=== PATIENT | female | born 1950 | race African-American/Black ===

== ENCOUNTER → 2016-03-31 | Outpatient (CLI) | payer MEDICARE, BC ==
[~2016-03-31] MED LIST: 1-ME1LIQ PO; ACYC800T PO; AMLO10TA2 PO; BYST10TA2 PO; CARB1DRO EACH EYE; CEPH-460 PO; DIAZ5 PO; DIAZ5TAB PO; FEXO15TA PO; GABA100C4 PO; GABA300 PO; HYDR-3288 PO; HYZA100T6 PO; IRON18TA PO; LEVO.1 PO; LEVO100T5 PO; LOSA100T PO; MONT10TA2 PO; MULT1TAB PO; POTA-163 PO; POTA20IN3 PO; PROT40TA PO; REST0.05 OU; SYNT88TA; SYNT88TA PO; TIZA4TAB PO; VITA10002 PO; VITA100064 PO; ZANA4CAP PO
[2016-03-31 08:05] LABS: AUTOMATED NEUTROPHIL # 2.7 TH/MM3 (1.8-7.7); BASOPHIL # 0.1 TH/MM3 (0-0.2); BASOPHIL % 1.3 % (0.0-2.0); HEMATOCRIT 36.1 % (35.0-46.0); LYMPH % 26.6 % (9.0-44.0); LYMPHOCYTE # 1.1 TH/MM3 (1.0-4.8); MEAN CELL VOLUME 67.1 FL (80.0-100.0); MEAN CORPUSCULAR HEMOGLOBIN 20.9 PG (27.0-34.0); MEAN CORPUSCULAR HGB CONC 31.2 % (32.0-36.0); MONO % 6.7 % (0.0-8.0); NEUT % 64.4 % (16.0-70.0); PLATELET COUNT 331 TH/MM3 (150-450); RED BLOOD COUNT 5.38 MIL/MM3 (4.00-5.30); RED CELL DISTRIBUTION WIDTH 15.2 % (11.6-17.2); WHITE BLOOD COUNT 4.2 TH/MM3 (4.0-11.0)
[2016-03-31 08:09] LABS: HEMO FLAGS AUTO DIFF
[2016-03-31 08:47] LABS: ALKALINE PHOSPHATASE 113 U/L (45-117); ALT (GPT) 28 U/L (10-53); ANION GAP 10 MEQ/L (5-15); AST (GOT) 36 U/L (15-37); BLOOD UREA NITROGEN 12 MG/DL (7-18); CHLORIDE 92 MEQ/L (98-107); FREE T4 1.04 NG/DL (0.76-1.46); GLOMERULAR FILTRATION RATE 80 ML/MIN (>89); GLUCOSE,FASTING 114 MG/DL (74-99); HDL CHOLESTEROL 75.5 MG/DL (40.0-60.0); LDL CHOLESTEROL 147 MG/DL (0-99); POTASSIUM 3.8 MEQ/L (3.5-5.1); SODIUM (NA) 131 MEQ/L (136-145); TOTAL BILIRUBIN ADULT 0.6 MG/DL (0.2-1.0)
[2016-03-31 08:57] LABS: PLATELET ESTIMATE SMEAR NORMAL (NORMAL); PLATELET MORPHOLOGY NORMAL (NORMAL); SCAN/DIFF AUTO DIFF CONFIRMED
== END ==
LOC: CLAB 07:37
DX: E89.0 Postprocedural hypothyroidism (principal); I10 Essential (primary) hypertension; E03.9 Hypothyroidism, unspecified; E55.9 Vitamin D deficiency, unspecified
CPT/HCPCS: 36415; 80053; 80061; 82306; 84439; 84443; 85025

== ENCOUNTER → 2016-04-21 | Outpatient (CLI) | payer MEDICARE, BC ==
[2016-04-21 15:59] LABS: HEMOGLOBIN A1a 1.6 %; HEMOGLOBIN A1b 1.9 %; HEMOGLOBIN Ao 85.9 %; HEMOGLOBIN LA1C 1.8 %
== END ==
LOC: CLAB 07:39
PROVIDERS: ATTEND Family Medicine
DX: R73.09 Other abnormal glucose (principal)
CPT/HCPCS: 36415; 83036

== ENCOUNTER → 2016-08-04 | Outpatient (CLI) | payer MEDICARE, BC ==
[~2016-08-04] MED LIST changes: -1-ME1LIQ PO; -CARB1DRO EACH EYE; -DIAZ5TAB PO; -GABA300 PO; -HYZA100T6 PO; -MULT1TAB PO; -POTA20IN3 PO; -REST0.05 OU; -SYNT88TA PO; -ZANA4CAP PO
[2016-08-04 08:41] LABS: FREE T4 0.87 NG/DL (0.76-1.46)
== END ==
LOC: CLAB 07:30
DX: E89.0 Postprocedural hypothyroidism (principal)
CPT/HCPCS: 36415; 84439; 84443

== ENCOUNTER → 2016-08-18 | Day surgery (SDC) | payer MEDICARE, BC ==
[~2016-08-18] VITALS: Ht 167.6 cm; Wt 90.1 kg
[~2016-08-18] MED LIST changes: +*morphine SULFATE 8 MG/ML PERIprocedure ONLY ONE; +BUPIVACAINE HCL PF 0.5% 30 ML VIAL ONE; +CHLORHEXIDINE GLUCONATE 2 % 1 PACK (2 CLOTHS) TOPICAL PRN; +DO NOT ADM ANY ANTICOAGULANT DRUGS PRN; +FAMOTIDINE 20 MG/2 ML VIAL ONE; +INSULIN HUMAN REGULAR 1,000 UNITS/10 ML VIAL SQ PRN; +LACTATED RINGER'S 1000 ML INJ 1,000 ML IV ONE; +LACTATED RINGER'S 1000 ML IV PRN; -LEVO100T5 PO; +LIDOCAINE HCL 2% 50 ML VIAL ONE; +MEPERIDINE HCL 50 MG/ML VIAL IM PRN; +METOPROLOL TARTRATE 25 MG TAB PO PRN; +MIDAZOLAM HCL 2 MG/2 ML VIAL ONE; +NEOMYCIN/POLYMYXIN 1 ML G.U. IRRIGANT TOPICAL ONE; +ONDANSETRON HCL 4 MG/2 ML VIAL IV PUSH ONE; +POVIDONE IODINE 5% (ANTISEPSIS KIT) 4 APPLICATIONS EACH NARE PRN; +PROPOFOL 200 MG/20 ML AMP IV ONE; +SODIUM CHLORID 0.9% 500 ML IV PRN; -SYNT88TA; +ceFAZolin 1,000 MG/NS 100 ML IV SCH; +ePHEDrine/NS 25 MG/5 ML SYR IV ONE; +fentaNYL CITRATE 250 MCG/5 ML AMP ONE
[2016-08-18 06:52] VITALS: BP 155/82; PULSE 72; RESP 20; TEMP 97.7; O2SAT 100
[2016-08-18 07:13] LABS: AUTOMATED NEUTROPHIL # 2.4 TH/MM3 (1.8-7.7); BASOPHIL % 1.1 % (0.0-2.0); EOSINOPHIL # 0.1 TH/MM3 (0-0.4); EOSINOPHIL % 2.9 % (0.0-4.0); HEMATOCRIT 36.6 % (35.0-46.0); HEMO FLAGS DIFF FINAL; LYMPH % 33.1 % (9.0-44.0); LYMPHOCYTE # 1.4 TH/MM3 (1.0-4.8); MEAN CELL VOLUME 68.5 FL (80.0-100.0); MEAN CORPUSCULAR HEMOGLOBIN 21.8 PG (27.0-34.0); MEAN CORPUSCULAR HGB CONC 31.9 % (32.0-36.0); MONO % 7.9 % (0.0-8.0); PLATELET COUNT 283 TH/MM3 (150-450); RED BLOOD COUNT 5.34 MIL/MM3 (4.00-5.30); RED CELL DISTRIBUTION WIDTH 15.6 % (11.6-17.2); WHITE BLOOD COUNT 4.3 TH/MM3 (4.0-11.0)
--- NOTE | 2016-08-18 09:46 | EKG ---
Date Performed: 08/18/2016 Time Performed: 06:51:14 PTAGE: 66 years EKG: Sinus rhythm WITH FIRST DEGREE AV BLOCK MINIMAL VOLTAGE CRITERIA FOR LVH, CONSIDER NORMAL VARIANT ABNORMAL ECG PREVIOUS TRACING : 05/05/2015 22.46 Compared to prior tracing no significant change DOCTOR: Frank Yen Interpretating Date/Time 08/18/2016 09:46:21
[2016-08-18] MEDS: ACETAMINOPHEN/HYDROcodone 325 MG/5 MG TAB PO PRN (11:15)
[2016-08-18 11:56] VITALS: BP 124/70; PULSE 65; RESP 16; TEMP 97.7; O2SAT 96
--- NOTE | 2016-08-19 20:00 | MP ---
cc: ROBERT HUFFMAN III, M.D. DATE OF SURGERY: 08/18/2016. PREOPERATIVE DIAGNOSIS: 1. Right ulnar neuropathy at the elbow and wrist. 2. Right carpal tunnel syndrome OPERATIVE PROCEDURE PERFORMED: 1. Right ulnar nerve release at the elbow with submuscular transposition. 2. Right open carpal tunnel release. 3. Right ulnar nerve release of the wrist. SURGEON: Robert Huffman III, MD. DESCRIPTION OF THE PROCEDURE IN DETAIL: The patient was brought to the operating room and placed supine on the operating table. After the correct site and side of surgery were verified by members of each team in the room multiple times including the patient and myself and after adequate preoperative markings and preoperative written consent were verified by everyone and after adequate preoperative time-out was performed to everyone's satisfaction and after adequate general anesthesia had been achieved, the right upper extremity was prepped and draped in the traditional sterile. Preoperative markings were made. The areas were infiltrated with a 50/50 mixture of 2% plain lidocaine and 0.5% plain Marcaine. The limb was exsanguinated with a gentle Grzegorz wrap and then a highly placed well-padded axillary tourniquet inflated to 220 mmHg for a total of 51 minutes. A longitudinally oriented incision over the carpal tunnel at the palm was made at the wrist flexion crease with angles avoiding 90 degrees over the crease were made and carried down through skin and subcutaneous tissue. Blunt dissection was performed. Bipolar electrocautery was used as needed. The transverse carpal ligament was identified as was the median nerve and the ligament was transected in its midline in its entirety from its proximal- most to its distal-most extents into the palm completely freeing the carpal tunnel contents. There was obvious rebound of the nerve. There was no other mass effect. There was a moderately hypertrophic tenosynovium. The nerve was otherwise intact and non-compromised. An extension transversely within the flexion crease was made in an ulnar direction. Dissection was performed bluntly. The ulnar artery and then the ulnar nerve were identified. The ulnar nerve was freed from surrounding tissue with blunt dissection from the distal forearm and into the palm to the bifurcation under direct visualization. There were no other anatomic abnormalities identified. Thorough irrigation with saline was performed. The skin edges were reapproximated using interrupted and running 4-0 nylon sutures. The elbows was bent to 45 degrees and a hockey stick incision was made 1 cm anteriorly to the ulnar groove. Blunt dissection was performed. Bipolar electrocautery was used as needed. The adipose tissue was dissected off the median epicondyle and the flexor retinaculum. The ulnar nerve was identified in the ulnar groove and freed from the arcade down to the bifurcation of the forearm. It was found be constricted in several different areas, but rebounded to a normal appearance. Most of the constriction was proximal to the epicondyle. A stair step incision was made into the flexor retinaculum and retinacular flaps were made. A bed in the flexor muscle was also fashioned and the nerve was transposed anteriorly and placed within this bed. The flaps were then repaired using #0 Vicryl sutures. Passive range of motion examination was then performed and the nerve had free and easy excursion with no subluxation. There is no kinking or any area that appeared to be tight around the nerve. A liters worth of saline was then used to thoroughly irrigate out the wound. Then 2-0 Vicryls were then used to tack subcutaneous fatty tissue to the retinacular tissue overlying and evening up the epicondyle as reinforcement posterior to the nerve. This will further prevent any chance of subluxation. Please note that prior to this step the axillary tourniquet was released and the hand and all of the fingers on the right became immediately soft, pink and warm and had brisk capillary refill. There was no active bleeding at all. Thorough irrigation was performed again with another liter of saline. The deep subcutaneous tissue was reapproximated using interrupted 3-0 Vicryl sutures and the skin edges reapproximated using running 4-0 nylon sutures and a quarter-inch Asiya drain split in half longitudinally was placed into the deepest part of the wound and brought out distally. The hand and arm were thoroughly cleansed and dried. Betadine and Adaptic dressings were applied atop the wounds. There was no evidence of any hematoma formation in the hand or the wrist. A very bulky soft dressing was applied circumferentially wrapped in Sof-Rol from distal palm to upper arm and then a well-padded, well molded posterior long-arm splint with the elbow flexed 90 degrees was made in the usual fashion. The patient was awakened from anesthesia and transported to the post-anesthesia care unit awake and in stable condition. Sponge, needle and instrument counts were correct at the end of the case as reported by the nurses in the room. MD RICHARD Hinson III/DAMASO /9:55 AM /7:49 PM
== END | disposition home or self-care (01) ==
LOC: HSDC 05:50
PROVIDERS: ATTEND Orthopaedic Surgery Hand Surgery
DX: G56.21 Lesion of ulnar nerve, right upper limb (principal); G56.01 Carpal tunnel syndrome, right upper limb; I10 Essential (primary) hypertension; E78.5 Hyperlipidemia, unspecified; J45.909 Unspecified asthma, uncomplicated; E03.9 Hypothyroidism, unspecified; K21.9 Gastro-esophageal reflux disease without esophagitis; M06.9 Rheumatoid arthritis, unspecified; D64.9 Anemia, unspecified; E66.9 Obesity, unspecified; Z68.32 Body mass index [BMI] 32.0-32.9, adult
CPT/HCPCS: 64718; 64719; 64721; 85025; 93005; J0690; J2250; J2270; J2405; J3010; J7120

== ENCOUNTER → 2016-09-01 | Outpatient (CLI) | payer MEDICARE, BC ==
[~2016-09-01] MED LIST changes: -*morphine SULFATE 8 MG/ML PERIprocedure ONLY ONE; -BUPIVACAINE HCL PF 0.5% 30 ML VIAL ONE; -CEPH-460 PO; -CHLORHEXIDINE GLUCONATE 2 % 1 PACK (2 CLOTHS) TOPICAL PRN; -DO NOT ADM ANY ANTICOAGULANT DRUGS PRN; -FAMOTIDINE 20 MG/2 ML VIAL ONE; -INSULIN HUMAN REGULAR 1,000 UNITS/10 ML VIAL SQ PRN; -LACTATED RINGER'S 1000 ML INJ 1,000 ML IV ONE; -LACTATED RINGER'S 1000 ML IV PRN; -LIDOCAINE HCL 2% 50 ML VIAL ONE; -MEPERIDINE HCL 50 MG/ML VIAL IM PRN; -METOPROLOL TARTRATE 25 MG TAB PO PRN; -MIDAZOLAM HCL 2 MG/2 ML VIAL ONE; -NEOMYCIN/POLYMYXIN 1 ML G.U. IRRIGANT TOPICAL ONE; -ONDANSETRON HCL 4 MG/2 ML VIAL IV PUSH ONE; -POVIDONE IODINE 5% (ANTISEPSIS KIT) 4 APPLICATIONS EACH NARE PRN; -PROPOFOL 200 MG/20 ML AMP IV ONE; -SODIUM CHLORID 0.9% 500 ML IV PRN; -ceFAZolin 1,000 MG/NS 100 ML IV SCH; -ePHEDrine/NS 25 MG/5 ML SYR IV ONE; -fentaNYL CITRATE 250 MCG/5 ML AMP ONE
[2016-09-01 08:07] LABS: FREE T4 1.07 NG/DL (0.76-1.46)
== END ==
LOC: CLAB 07:15
DX: E89.0 Postprocedural hypothyroidism (principal)
CPT/HCPCS: 36415; 84439; 84443

== ENCOUNTER → 2016-10-18 | Outpatient (CLI) | payer MEDICARE, BC ==
[~2016-10-18] MED LIST changes: -HYDR-3288 PO; -TIZA4TAB PO
[2016-10-18 11:01] LABS: AUTOMATED NEUTROPHIL # 4.3 TH/MM3 (1.8-7.7); BASOPHIL % 0.6 % (0.0-2.0); EOSINOPHIL # 0.1 TH/MM3 (0-0.4); EOSINOPHIL % 2.3 % (0.0-4.0); HEMATOCRIT 36.6 % (35.0-46.0); HEMO FLAGS DIFF FINAL; LYMPH % 18.8 % (9.0-44.0); LYMPHOCYTE # 1.1 TH/MM3 (1.0-4.8); MEAN CELL VOLUME 69.5 FL (80.0-100.0); MEAN CORPUSCULAR HGB CONC 31.6 % (32.0-36.0); MONO % 7.2 % (0.0-8.0); NEUT % 71.1 % (16.0-70.0); PLATELET COUNT 272 TH/MM3 (150-450); RED BLOOD COUNT 5.26 MIL/MM3 (4.00-5.30); WHITE BLOOD COUNT 6.1 TH/MM3 (4.0-11.0)
[2016-10-18 11:25] LABS: BICARBONATE 30.6 MEQ/L (21.0-32.0)
== END ==
LOC: CLAB 10:27
PROVIDERS: ATTEND Family Medicine
DX: D50.9 Iron deficiency anemia, unspecified (principal); E87.6 Hypokalemia
CPT/HCPCS: 36415; 80048; 85025

== ENCOUNTER → 2016-12-30 | Outpatient (CLI) | payer MEDICARE, BC ==
[~2016-12-30] MED LIST changes: -ACYC800T PO; +REFRDRO EACH EYE; +REST0.05 EACH EYE
[2016-12-30 09:30] LABS: FREE T4 1.01 NG/DL (0.76-1.46)
== END ==
LOC: CLAB 07:53
DX: E89.0 Postprocedural hypothyroidism (principal)
CPT/HCPCS: 36415; 84439; 84443

== ENCOUNTER → 2017-06-12 | Outpatient (CLI) | payer MEDICARE, BC ==
[2017-06-12 08:57] LABS: ALBUMIN 3.4 GM/DL (3.4-5.0); AST (GOT) 30 U/L (15-37); BICARBONATE 24.5 MEQ/L (21.0-32.0); BLOOD UREA NITROGEN 14 MG/DL (7-18); CALCIUM 8.3 MG/DL (8.5-10.1); CHLORIDE 107 MEQ/L (98-107); CREATININE 0.89 MG/DL (0.50-1.00); GLOMERULAR FILTRATION RATE 77 ML/MIN (>89); GLUCOSE,FASTING 110 MG/DL (74-99); SODIUM (NA) 141 MEQ/L (136-145)
[2017-06-12 08:58] LABS: ALT (GPT) 31 U/L (10-53); CHOLESTEROL 177 MG/DL (120-200); TRIGLYCERIDES 77 MG/DL (42-150)
[2017-06-12 09:00] LABS: ALKALINE PHOSPHATASE 131 U/L (45-117); CHOLESTEROL/ HDL RATIO 3.34 RATIO; HDL CHOLESTEROL 52.9 MG/DL (40.0-60.0); LDL CHOLESTEROL 109 MG/DL (0-99); TOTAL BILIRUBIN ADULT 0.7 MG/DL (0.2-1.0); TOTAL PROTEIN 8.1 GM/DL (6.4-8.2)
[2017-06-14 19:14] LABS: HEMOGLOBIN A1C 5.7 % (4.3-6.0)
== END ==
LOC: CLAB 08:04
PROVIDERS: ATTEND Specialist
DX: E66.09 Other obesity due to excess calories (principal); Z13.1 Encounter for screening for diabetes mellitus
CPT/HCPCS: 36415; 80053; 80061; 83036

== ENCOUNTER 2017-11-08 12:00 | Inpatient (IN) ==
[2017-11-17] MEDS ORDERED: Bupivacaine/Epinephrine 0.5% Inj 50 ML Vial ONE (07:15)
[2017-11-17] MEDS ORDERED: Thrombin Topical Soln 5,000 UNIT Vial TOPICAL ONE (07:15)
[2017-11-17] MEDS ORDERED: Gelatin Size 100 Topical Foam ONE (07:15)
[2017-11-17] MEDS ORDERED: Metoprolol Tartrate 25 MG Tablet PO SCH (10:12)
[2017-11-17] MEDS ORDERED: Chlorhexidine Gluconate 2% 1 Pack (2 Cloths) TOPICAL SCH (10:12)
[2017-11-17] MEDS ORDERED: Vancomycin Inj 1,000 MG in Sodium Chlor 0.9% Inj 250 ML IV.SIG SCH (10:13)
[2017-11-17] MEDS ORDERED: Sodium Chlor 0.9% Inj 500 ML IV.SIG SCH (11:00)
[2017-11-17] MEDS ORDERED: HYDROmorphone PF Inj 2 MG/ML Vial ONE (15:55)
[2017-11-17] MEDS ORDERED: fentaNYL Citrate Inj 100 MCG/2 ML Ampul ONE ×2 (15:55→20:53)
[2017-11-17] MEDS ORDERED: Propofol Inj 500 MG/50 ML Vial ONE (15:56)
[2017-11-17] MEDS ORDERED: Bisacodyl 10 MG Supp RECTAL PRN (15:57)
[2017-11-17] MEDS ORDERED: Naloxone Inj 0.4 MG/ML Vial IV.PUSH PRN (16:00)
[2017-11-17] MEDS ORDERED: HYDROmorphone PCA Inj 6 MG/30 ML PCA.VIAL PCA PRN (16:00)
[2017-11-17] MEDS ORDERED: Glycopyrrolate Inj 1 MG/5 ML Syringe IV.PUSH ONE (16:05)
[2017-11-17] MEDS ORDERED: Phenylephrine/NS 1000 MCG/10ML Syringe IV.PUSH ONE (16:05)
[2017-11-17] MEDS ORDERED: Lidocaine PF 1% Inj 5 ML Syringe INFILTRATN ONE (16:05)
[2017-11-17] MEDS ORDERED: Sodium Chlor 0.9% Inj 500 ML IV.SIG ONE (16:05)
[2017-11-17 19:12] LABS: Hematocrit 32.4 % (35.0-46.0); Hemoglobin 10.1 gm/dL (11.6-15.3)
--- NOTE | 2017-11-17 20:25 | P.OP ---
Preoperative Diagnosis: lumbar degenerative disk disease Postoperative Diagnosis: lumbar degenerative disk disease Date of procedure: 11/17/17 Procedure: L3-4 left laminectomy, interbody arthrodhesis using PEEK cage and autologous bone graft, L3-L4 instrumental fixation using transpedicular screws and rods, L3 -L4 posterolateral fusion using autologous bone graft and demineralized bone matrix. Microsurgical dissection Anesthesia: BARBARA Surgeon: Juan Antonio Watts MD Patient Navigator: Massiel Sanchez Pathology: none sent Operation and Findings: INDICATIONS FOR THE SURGICAL PROCEDURE Ms Patterson is a 67 year-old female who presented with intractable mechanical back pain and jignesh evidence of L4 lower extremity radiculopathy. she had history of a prior L2-3 fusion done and she has developed severe adjacent level degenerative disk disease, with a disk herniation at L3-L4. She has failed maximum nonsurgical management including multiple modalities of conservative treatment as well as pain management interventions by an interventional pain specialist. A surgical decompression and arthrodhesis were indicated as a last resort. The [id number] details of the procedure, indications, alternatives, risks and potential complications were fully discussed with the patient. The patient fully understood. All the questions were answered. No guarantees were given. The patient voiced requesting the procedure and provided informed consents. The patient was offered the alternative of delaying the procedure and continuing with nonsurgical management. DETAILS OF THE SURGICAL PROCEDURE Prior to the procedure, the surgical incision was marked in the preoperative surgical holding room, and the procedure, risks, and potential complications revisited with the patient. Placement of electrodes for intraoperative neurophysiological monitoring was completed. The patient was taken to the operative room, and following induction of general anesthesia, endotracheal intubation was performed. A Saul catheter, bilateral ARABELLA hose and sequential compression devices were placed and kept throughout the procedure. The patient was positioned prone, over a Facundo table over bolsters. All pressure in the preoperative surgical holding room points were carefully padded with eggcrate and gel mattress. The eyes were tapped shut after ointment was applied by the anesthesiologist to prevent corneal abrasion. A Shaina hugger was placed over the exposed lower body to maintain control of the core body temperature. The electrophysiological team placed the needles and electrodes in their proper location and baseline SSEP's and motor evoked potentials were registered. The entrance to each pedicles was marked using a C- arm. The lumbar region was prepped and draped in the usual sterile fashion. The surgical procedure was performed in several steps as follow: SURGICAL APPROACH Once the patient was positioned, a localizing cross-table lateral x-ray was performed with a C-arm. Two paramedial skin incisions were made with a #10 blade. Small bleeders were controlled with the cautery. The dissection was then carried out into deeper planes and through the thoracolumbar fascia with a Bovie. The proper anatomical landmarks were identified. A microsurgical self- retaining retractor was placed on the incision, and a localizing lateralizing cross-table x-ray was performed with an instrument underneath a lamina of the lumbar spine. INSTRUMENTAL FIXATION At this point in the procedure, the instrumentation at L2-L3 was exposed bilaterally, and the set screws were sequentially removed. The cross ling was removed and the rods were removed. At this time placement of bilateral transpedicular was carried out at L4. . Initially, the entry point for the screw was selected anatomically at the junction of the facet, with the transverse process, and the pars interarticularis. This was started using a Giamshetti needle followed by the use of a peterson wire. A tap was used to create the threads for the screws. Finally bilateral transpedicular screws were carefully placed bilaterally at L4 under fluoroscopic visualization. An appropriate purchase was achieved with all screws. The position of each screw was assessed anatomically with an AP, lateral , oblique Xrays. An intraoperative scan view of the spine was then performed using the iso-centric c-arm. Each screw was then assessed electrophysiologically stimulating each screw with a nerve stimulator SURGICAL DECOMPRESSION There was significant mass effect with compression of the neural structures. In order to relieve neural compression, it was necessary to perform a decompressive laminectomy, with decompression of the spinal canal and bilateral lateral recesses. Note that the scope of such decompression was significantly more extensive than the minimal exposure necessary to perform an interbody fusion, as there was extreme facet arthropathy with near complete collapse of the disk spaces and severe stenosis cause by the hypertrophic joint facets. At this point of the procedure the operative microscope was draped in the usual sterile fashion and brought to the field. The rest of the surgical procedure was performed using microdissection technique with the exception of the closure. The margins of the previous laminectomy were exposed. Under the operating microscope, a bilateral decompressive laminectomy was carried out at L3-L4 as follow: given the previous laminectomy and significant scaring which was threatening the dural sac, it was necessary to further drill the facet to allow proper exposure of the disk. The laminae, base of the spinous processes and facets were carefully drilled exposing the ligamentum flavum. There was severe compression of the causa equine and exiting nerve roots. The facets were abnormal, with mechanical instability. A large disk protrusion was compressing the neural structures and exiting nerve roots. A near complete facetectomy was necessary. The ligamentum flavum appeared hypertrophic, which in combination to scar tissue resulted on mass effect on the dorsal surface of the neural structures. The superior free border of the ligamentum flavum was elevated with a ligament dissector and the ligamentum flavum and scar tissue were removed with a 3 and 4 mm Kerrison forceps. The scar tissue and ligament were very adherent to the dural sac and during the dissection, and extreme care was taken during the dissection. The exiting nerve roots were identified, and a wide foraminotomy was performed with a Kerrison in their trajectory towards the neural foramen. Epidural veins located laterally to the dural sac were coagulated with the bipolar cautery, and then incised using microscissors. Gentle medial retraction of the dural sac allowed me to expose the disc space for the discectomy. The disk space L3-L4 was nearly completely collapsed. Upon completion of the discectomy, an excellent decompression of the neural structures was achieved. INTERBODY ARTHRODESIS In order to correct the narrowing of the disk space and maintain distraction of the space, and to achieve a solid interbody fusion, it was necessary the insertion of an interbody device into the disk space. Otherwise, the disk space would collapse, compromising the result of the surgical procedure. At this point of the procedure, the annulus fibrosus of the disk was carefully coagulated with a bipolar cautery and incised using an 11 bladed knife. Then, a microdiscectomy was carried out in a standard fashion using a combination of straight and up-biting pituitary forceps. A reverse angle curette was applied underneath the posterior longitudinal ligament, and used to push the disk fragments into the disk space, so they can be safely removed with a pituitary forceps. Once the discectomy was completed, it was necessary to decorticate the endplates, in order to eliminate the cartilaginous endplate and to expose healthy bone appropriate to perform the interbody fusion. The endplates at L3-L4 were then thoroughly decorticated using increasing size bone marlo and ring curets, eliminating the cartilaginous fragments from both, the superior and inferior endplates. A disk space distractor was applied to the pedicle screws and gentle distraction was applied. This maneuver was assisted by the use of a disk distractor. Once a thorough preparation of the disk space was achieved, the disk space was irrigated with antibiotic solution, and the interbody fusion was performed by carefully impacting PEEK cage3 filled with autologous bone graft. The use of several shoe impactors with different angulation, allowed me for an excellent, proper position of the interbody cage. A solid position of the cage with good purchase was achieved. The position of the cage was assessed anatomically with a probe and radiologically with the C-arm. POSTEROLATERAL FUSION The posterolateral fusion is a critical component to the procedure, to prevent future fatigue and failure of the instrumental fixation. Initially, the transverse processes of the vertebral bodies, lateral surface of the facets and the lateral gutters of the spine were carefully cleaned, eliminating all soft tissue and muscle attachments. The area was then irrigated with a large amount of antibiotic solution. Subsequently, the transverse processes, lateral surface of the facets, and lateral gutters of the spine were thoroughly decorticated using the TPS drill with a 5mm cutting ese, exposing cancellous bone, in preparation for the posterolateral fusion. The incision was again irrigated with antibiotic solution. Then, the posterolateral fusion was then performed by carefully packing the lateral gutters of the spine at L3-L4 with autologous iliac crest bone combined with demineralized bone matrix. COMPLETION OF THE INSTRUMENTATION AND CLOSURE The rods were brought to the field, applied to all the screws, and the screw caps were sequentially applied. Compression was performed between the pedicle screws, and final tightening of the screws was completed using a torque wrench. The incision was again thoroughly irrigated with several liters of basic ortho antibiotic solution, and hemostasis secured with the bipolar cautery. A Valsalva Maneuver performed by the anesthesiologist failed to show any evidence of cerebrospinal fluid leak or bleeding. A 10 mm Facundo-Clemons drain was left in the epidural space and externalized through a separate stab incision. The incision was then closed in planes. 0 Vicryl was used in an interrupted fashion to close the thoracolumbar fascia and the superficial fascia. The subcutaneous tissue was then approximated using 3-0 Vicryl in an interrupted fashion. Special care was taken to avoid space. The skin was then closed with 4-0 Vicryl in a running, subcuticular fashion. Each plane of closure was irrigated with antibiotic solution. At the end of the procedure the sponge, needle and instrument counts were all correct. Estimated blood loss was 400-500 cc or less. No blood transfusion was given. No complications. The entire procedure was performed using continuous electrophysiological monitoring of the somato sensorial evoked potentials and EMG. The patient received prophylactic antibiotics. The patient was then extubated and transferred to the recovery room in stable condition.
[2017-11-17] MEDS ORDERED: *Meperidine Inj 25 MG/ML Vial PERIprocedural Use ONLY ONE (20:54)
[2017-11-17] MEDS ORDERED: PT DULERA INH SCH (21:00)
[2017-11-17] MEDS: Sod Chloride 0.9% Inj 1,000 ML IV.CONT SCH (21:18)
[2017-11-17] MEDS: Sod Chloride 0.9% Inj 1,000 ML IV.SIG SCH (21:25)
[2017-11-17] MEDS: Montelukast 10 MG Tablet PO SCH (21:26)
--- NOTE | 2017-11-17 21:44 | XR ---
EXAM DATE: 11/17/2017 9:38 PM EDT AGE/SEX: 67 years / Female INDICATIONS: L3-L4 lumbar fusion. CLINICAL DATA: This is the patient's initial encounter. Patient reports that signs and symptoms have been present for 1 day and indicates a pain score of Nonresponsive. MEDICAL/SURGICAL HISTORY: Non-responsive. Non-responsive. COMPARISON: [facility], XR SPINE LUMBAR (MIN 4 VIEWS), 10/12/2017. . FINDINGS: Transpedicular screws are seen at the L2, L3 and L4 levels with posterior connecting rods present. Th ere is a new stabilization device seen at the L3-L4 level. There is disc space narrowing at this leve l. There is a pre-existing metallic density seen at the anterior L2-L3 disc level. There is a surgica l drain seen. CONCLUSION: Placement of surgical hardware as described above. Electronically signed by: Sergio eHnry MD 11/17/2017 9:43 PM EDT
[2017-11-17] MEDS: Senna/Docusate Sodium 8.6/50 MG Tablet PO SCH (23:20)
[2017-11-17] MEDS: ceFAZolin Inj 2,000 MG in Sodium Chlor 0.9% Inj 80 ML IV.SIG SCH (23:27)
[2017-11-18] MEDS: ceFAZolin Inj 2,000 MG in Sodium Chlor 0.9% Inj 80 ML IV.SIG SCH ×4 (00:09→16:14)
[2017-11-18] MEDS: Sod Chloride 0.9% Inj 1,000 ML IV.CONT SCH ×3 (03:06→22:09)
[2017-11-18] MEDS: Levothyroxine 112 MCG Tablet PO SCH (05:38)
[2017-11-18] MEDS: Multivitamin/Minerals Therapeutic Tablet PO SCH (08:13)
[2017-11-18] MEDS: Vitamin B Complex/Vitamin C Tablet PO SCH (08:13)
[2017-11-18] MEDS: Loratadine 10 MG Tablet PO SCH (08:13)
[2017-11-18] MEDS: Senna/Docusate Sodium 8.6/50 MG Tablet PO SCH ×2 (08:13→20:36)
[2017-11-18] MEDS: hydroCHLOROthiazide 25 MG Tablet PO SCH (08:13)
[2017-11-18 08:41] LABS: Baso % (Auto) 0.4 % (0.0-2.0); Eos # (Auto) 0.1 th/mm3 (0.0-0.4); Hematocrit 31.3 % (35.0-46.0); Hemoglobin 9.6 gm/dL (11.6-15.3); Lymph # (Auto) 1.3 th/mm3 (1.0-4.8); Lymph % (Auto) 18.3 % (9.0-44.0); Mean Corpuscular Hemoglobin 21.2 pg (27.0-34.0); Mean Corpuscular Volume 68.8 fL (80.0-100.0); Mean Platelet Volume 7.7 fL (7.0-11.0); Mono # (Auto) 0.5 th/mm3 (0.0-0.9); Mono % (Auto) 7.4 % (0.0-8.0); Neut # (Auto) 5.1 th/mm3 (1.8-7.7); Neut % (Auto) 72.9 % (16.0-70.0); Platelet Count 270 th/mm3 (150-450); Red Blood Count 4.55 mil/mm3 (4.00-5.30); Red Cell Distribution Width 16.4 % (11.6-17.2)
[2017-11-18 08:45] LABS: Mean Corpuscular HGB Conc 30.8 % (32.0-36.0)
[2017-11-18] MEDS ORDERED: Pantoprazole Sodium 20 MG DR Tablet PO SCH (09:00)
[2017-11-18] MEDS ORDERED: MULTIVITAMIN MIN IRON FA VIT K PO SCH (09:00)
[2017-11-18] MEDS: Sod Chloride 0.9% Inj 1,000 ML IV.SIG SCH ×2 (09:02→11:39)
[2017-11-18 09:13] LABS: Calcium 7.4 mg/dL (8.5-10.1); Carbon Dioxide 30.6 meq/L (21.0-32.0); Potassium 3.9 meq/L (3.5-5.1)
--- NOTE | 2017-11-18 09:47 | P.PNNS ---
Subjective Interval history: No acute events overnight. Patient does report expected postoperative pain today. She is finding it difficult to use the [employer]ENT[employer] CL[employer]; she tends to sleep and get behind on pain management, and then awaken with increased pain. She is looking forward to breakfast and feeling hungry. She denies any new neurologic changes such as weakness or numbness. Physical Exam Vital signs: Vital Signs 11/17/17 11:13 11/17/17 20:45 11/17/17 21:00 Temperature 97.9 F 97.4 F L 97.6 F Pulse Rate 62 106 H 106 H Respiratory Rate 18 14 14 Blood Pressure 153/84 H 137/70 135/69 Pulse Oximetry 99 100 100 11/17/17 21:06 11/17/17 21:15 11/17/17 21:30 Temperature 97.6 F 97.6 F 97.6 F Pulse Rate 106 H 97 H 91 H Respiratory Rate 14 14 14 Blood Pressure 135/69 134/71 130/61 Pulse Oximetry 100 99 98 11/17/17 22:15 11/18/17 00:00 11/18/17 04:00 Temperature 97.4 F L 97.3 F L 97.5 F L Pulse Rate 86 84 77 Respiratory Rate 14 17 18 Blood Pressure 133/64 118/68 115/57 L Pulse Oximetry 100 97 99 11/18/17 08:00 11/18/17 08:29 11/18/17 08:59 Temperature 98 F Pulse Rate 75 Respiratory Rate 20 16 18 Blood Pressure 126/60 Pulse Oximetry 99 Intake & Output 11/17/17 11/18/17 11/18/17 18:59 06:59 18:59 Intake Total 4100 / 4100 100 / 100 Output Total 1690 / 1690 Balance 2410 / 2410 100 / 100 Weight 93.7 kg 94 kg Intake: IV 1100 / 1100 100 / 100 LR 1000 mL Inj 1,000 ML @ 30 1000 / 1000 mls/hr IV.SIG .Q24H [facility] Rx#: [id number] Ancef Inj 2,000 MG In NS Inj 80 100 / 100 100 / 100 ML @ 100 mls/hr IV.SIG Q8H [facility]RIE Rx#:[id number] Anesthesia Amount 3000 / 3000 Output: Urine 350 / 350 Estimated Blood Loss 450 / 450 Urine Amount (Catheter) 800 / 800 Indwelling Urethral Catheter 800 / 800 Wound Drainage # 1 Right Lower Medial Back Other: Date of Last Bowel Movement 11/17/17 11/17/17 Weight On Admission 93.7 kg - Routine Neurological Exam Alert and conversant. Follows commands appropriately 4. Normal strength in the lower extremities. Expected amount of pain in her back. - Urinary Catheter Management Indwelling Urethral Catheter Cath placed during this visit: yes Reason for continuing: Other continuation reason Insertion date: 11/17/17 Insertion time: 15:16 Assessment and Plan - Plan 67-year-old female status post L4-5 PLIF on 11/17/17. Postoperative x-rays demonstrate good hardware position. Neuro: Good exam. Encouraged her to use oral pain medication to reduce reliance on the [employer] and to give her a more steady degree of baseline pain control. She is willing to try that. Will not change her pain medication orders for now. JOSHUA output 90 mL's, will keep today. Pulm: 02 while on [employer]. Pulmonary toilet as needed. CV: Stable GI: Has diet, encouraged p.o. intake : Can DC Saul catheter Dispo: Needs to work with PT/OT over the next couple of days. Improved pain control will help with this.
[2017-11-18 10:01] LABS: Total Protein 6.4 g/dL (6.4-8.2)
[2017-11-18] MEDS: Montelukast 10 MG Tablet PO SCH ×2 (16:12→17:04)
--- NOTE | 2017-11-18 18:38 | P.CON ---
History of Present Illness Service: Hospitalist Consult date: 11/18/17 Requesting Physician: Gustabo Barraza Reason for Consult: Medication management Primary Care Provider: Breana Dominguez MD Family Provider: Breana Dominguez MD Chief Complaint: Back pain History of Present Illness: Patient is a 67-year-old -[place] female with a past medical history of hypertension, hyperlipidemia, hypothyroidism and chronic back pain. She was admitted on 11/17 for L4-5 PLIF. Hospitalist service has been consulted for medical management. Patient is seen sitting up in room eating lunch. She is experiencing pain but is trying to use her LEATHERSMITH pump more consistently. She was able to work with physical therapy. Denies any chest pain or shortness of breath. Denies any nausea vomiting or diarrhea. She is tolerating meals although she does not like her food. Review of Systems All other systems reviewed negative except as stated in HPI PMFSH - History History Provided By: Patient, Medical Record - Medical History Medical History: Medical History (Last Reviewed 11/18/17 @ 18:33 by MARKIE Oakes) Anemia Anxiety Arthritis Asthma Back pain Bulging lumbar disc Cataract GERD (gastroesophageal reflux disease) High cholesterol History of hysterectomy Hypertension Hypothyroidism Wears glasses - Surgical History Surgical History: Surgical History (Last Reviewed 11/18/17 @ 18:33 by MARKIE Oakes) History of arthroplasty of left knee History of carpal tunnel release History of decompression of ulnar nerve History of discectomy History of thyroidectomy - Tobacco History Second Hand Smoke Exposure: No Smoking Status: Former smoker - Alcohol History How Often Do You Have a Drink Containing Alcohol: Never - Substance Use History Substance History: No History of Abuse - Travel History Recent Travel in the [place] Within the Last 8 Weeks: No Recent Travel Out of the Country Within the Last 8 Weeks: No Medications and Allergies Active Medications: Active Medications Hydrocodone Bitart/Acetaminophen ([place] 10/325) 2 tab PO Q4H PRN PRN Reason: PAIN SCALE 6 TO 10 Last Admin: 11/18/17 16:12 Dose: 2 tab Al Hydroxide/Mg Hydroxide (Milk Of Magnesia Liq) 30 ml PO Q12H PRN PRN Reason: Mild Constipation Albuterol (Ventolin Hfa Inh) 1 puff INH Q4H PRN PRN Reason: Shortness Of Breath Atorvastatin Calcium (Lipitor) 10 mg PO DAILY [facility] Last Admin: 11/18/17 08:13 Dose: 10 mg Bisacodyl (Dulcolax Supp) 10 mg RECTAL DAILY PRN PRN Reason: SEVERE CONSITIPATION Cetirizine HCl (Zyrtec) 10 mg PO DAILY PRN PRN Reason: ALLERGY SYMPTOMS Last Admin: 11/18/17 05:42 Dose: 10 mg Clonidine HCl (Catapres) 0.2 mg PO BID [facility] Last Admin: 11/18/17 08:13 Dose: 0.2 mg Hydrochlorothiazide (Hydrodiuril) 25 mg PO DAILY [facility] Last Admin: 11/18/17 08:13 Dose: 25 mg Lactated Ringer's (Lr 1000 Ml Inj) 1,000 mls @ 30 mls/hr IV.SIG .Q24H [facility] Stop: 11/19/17 10:14 Last Admin: 11/18/17 09:20 Dose: Not Given Sodium Chloride (Ns Inj) 500 mls @ 30 mls/hr IV.SIG .Q10H [facility] Stop: 11/19/17 10:59 Sodium Chloride (Ns Inj) 1,000 mls @ 30 mls/hr IV.SIG .Q24H [facility] Last Admin: 11/18/17 11:39 Dose: Not Given Sodium Chloride (Ns Inj) 1,000 mls @ 100 mls/hr IV.CONT .Q10H [facility] Last Admin: 11/18/17 11:38 Dose: Not Given Hydromorphone/Sodium Chloride (Dilaudid Aeronautics Teacher Inj) 6 mg in 30 mls @ 0 mls/hr LEATHERSMITH UNSCH PRN PRN Reason: per LEATHERSMITH parameters Last Admin: 11/17/17 21:49 Dose: 0 mls/hr Lactulose (Lactulose Liq) 30 ml PO DAILY PRN PRN Reason: SEVERE CONSITIPATION Levothyroxine Sodium (Synthroid) 112 mcg PO DAILY@0600 [facility] Last Admin: 11/18/17 05:38 Dose: 112 mcg Loratadine (Claritin) 10 mg PO DAILY [facility] Last Admin: 11/18/17 08:13 Dose: 10 mg Losartan Potassium (Cozaar) 100 mg PO DAILY [facility] Last Admin: 11/18/17 08:13 Dose: 100 mg Miscellaneous Information (Misc Nursing Information) 1 each OTHER UNSCH PRN PRN Reason: SEE LABEL COMMENTS Stop: 11/18/17 20:44 Montelukast Sodium (Singulair) 10 mg PO QPM [facility] Stop: 11/18/17 19:00 Last Admin: 11/18/17 17:04 Dose: Not Given Montelukast Sodium (Singulair) 10 mg PO DAILY [facility] Multivitamins/Minerals (Theragran-M) 1 tab PO DAILY [facility] Last Admin: 11/18/17 08:13 Dose: 1 tab Naloxone HCl (Narcan Inj) 0.4 mg IV.PUSH PRN PRN PRN Reason: SEE LABEL COMMENTS Nebivolol (Bystolic) 10 mg PO HS [facility] Last Admin: 11/17/17 23:26 Dose: 10 mg LEATHERSMITH Dosage Infused (Pha) (Aeronautics Teacher Total Dose - Dilaudid) 0 each MISCELLANE Q8H [facility] Last Admin: 11/18/17 16:17 Dose: 4.6 each Pantoprazole Sodium (Protonix) 40 mg PO DAILY [facility] Last Admin: 11/18/17 08:12 Dose: 40 mg Pt:Dulera 0 each INH BID [facility] Potassium Chloride (K-Dur) 20 meq PO BID [facility] Last Admin: 11/18/17 08:13 Dose: 20 meq Senna/Docusate Sodium (Johana-Colace) 1 tab PO BID [facility] Last Admin: 11/18/17 08:13 Dose: 1 tab Sennosides (Senokot) 17.2 mg PO Q12H PRN PRN Reason: Moderate Constipation Vitamin B Complex/Vitamin C (Allbee C) 1 tab PO DAILY [facility] Last Admin: 11/18/17 08:13 Dose: 1 tab Allergies Allergy/AdvReac Type Severity Reaction Status Date / Time pseudoephedrine Allergy Intermediate Rapid Verified 10/31/17 08:06 heart rate prednisone AdvReac Intermediate extreme Verified 10/31/17 08:06 whole body swelling Home Medications Medication Instructions Recorded Confirmed Type albuterol sulfate [Proventil HFA] 1 puff INHALATION Q4-6H PRN 10/31/17 11/17/17 History atorvastatin 10 mg PO DAILY 10/31/17 11/17/17 History cetirizine [Zyrtec] 10 mg PO DAILY PRN 10/31/17 11/17/17 History clonidine HCl 0.2 mg PO BID 10/31/17 11/17/17 History hydrochlorothiazide 25 mg PO DAILY 10/31/17 11/17/17 History levothyroxine [Synthroid] 112 mcg PO DAILY 10/31/17 11/17/17 History loratadine [Claritin] 10 mg PO DAILY 10/31/17 11/17/17 History losartan 100 mg PO DAILY 10/31/17 11/17/17 History mometasone-formoterol [Dulera] 2 puff INHALATION BID 10/31/17 11/17/17 History montelukast [Singulair] 10 mg PO QPM 10/31/17 11/17/17 History [id number] K 1 tab PO DAILY 10/31/17 11/17/17 History [Adults Multivitamin] nebivolol [Bystolic] 10 mg PO HS 10/31/17 11/17/17 History pantoprazole 20 mg PO DAILY 10/31/17 11/17/17 History potassium chloride 20 meq PO BID 10/31/17 11/17/17 History vit B comp with C-calcium carb 1 tab PO DAILY 10/31/17 11/17/17 History [B-Complex] Physical Exam Vital signs: Vital Signs 11/17/17 20:45 11/17/17 21:00 11/17/17 21:06 Temperature 97.4 F L 97.6 F 97.6 F Pulse Rate 106 H 106 H 106 H Respiratory Rate 14 14 14 Blood Pressure 137/70 135/69 135/69 Pulse Oximetry 100 100 100 11/17/17 21:15 11/17/17 21:30 11/17/17 22:15 Temperature 97.6 F 97.6 F 97.4 F L Pulse Rate 97 H 91 H 86 Respiratory Rate 14 14 14 Blood Pressure 134/71 130/61 133/64 Pulse Oximetry 99 98 100 11/18/17 00:00 11/18/17 04:00 11/18/17 08:00 Temperature 97.3 F L 97.5 F L 98 F Pulse Rate 84 77 75 Respiratory Rate 17 18 20 Blood Pressure 118/68 115/57 L 126/60 Pulse Oximetry 97 99 99 11/18/17 08:29 11/18/17 08:59 11/18/17 12:00 Temperature 97.8 F Pulse Rate 72 Respiratory Rate 16 18 20 Blood Pressure 107/57 L Pulse Oximetry 95 11/18/17 12:17 11/18/17 16:00 11/18/17 16:12 Temperature 97.2 F L Pulse Rate 64 Respiratory Rate 18 20 18 Blood Pressure 90/53 L Pulse Oximetry 97 11/18/17 16:41 11/18/17 16:42 Temperature Pulse Rate Respiratory Rate 18 Blood Pressure 97/49 L Pulse Oximetry Intake & Output 11/17/17 11/18/17 11/18/17 18:59 06:59 18:59 Intake Total 4100 / 4100 1441 / 1441 Output Total 1690 / 1690 260 / 260 Balance 2410 / 2410 1181 / 1181 Weight 93.7 kg 94 kg Intake: IV 1100 / 1100 1200 / 1200 NS Inj 1,000 ML @ 100 mls/hr IV 1000 / 1000 .CONT .Q10H [facility] Rx#:[id number] LR 1000 mL Inj 1,000 ML @ 30 1000 / 1000 mls/hr IV.SIG .Q24H [facility] Rx#: [id number] Ancef Inj 2,000 MG In NS Inj 80 100 / 100 200 / 200 ML @ 100 mls/hr IV.SIG Q8H [facility] Rx#:[id number] Oral 241 / 241 Anesthesia Amount 3000 / 3000 Output: Urine 350 / 350 Estimated Blood Loss 450 / 450 Urine Amount (Catheter) 800 / 800 200 / 200 Indwelling Urethral Catheter 800 / 800 200 / 200 Wound Drainage 90 / 90 60 / 60 # 1 Right Lower Medial Back 90 / 90 60 / 60 Other: Date of Last Bowel Movement 11/17/17 11/17/17 Weight On Admission 93.7 kg Narrative: GENERAL: Well-nourished, well-developed adult female in no obvious distress. SKIN: Warm and dry. HEAD: Atraumatic. Normocephalic. CARDIOVASCULAR: Regular rate and rhythm. RESPIRATORY: No accessory muscle use. Clear to auscultation. Breath sounds equal bilaterally. GASTROINTESTINAL: Abdomen soft, non-tender, non-distended. Positive bowel sounds. MUSCULOSKELETAL: Extremities without clubbing, cyanosis, or edema. No obvious deformities. Wearing back brace. NEUROLOGICAL: Awake and alert. No obvious cranial nerve deficits. Motor grossly within normal limits. Normal speech. PSYCHIATRIC: Appropriate mood and affect; insight and judgment good. - Urinary Catheter Management Indwelling Urethral Catheter Cath placed during this visit: yes, but has since been removed by the nurse Reason for continuing: Decision to DC catheter Insertion date: 11/17/17 Insertion time: 15:16 Removal date: 11/18/17 Removal time: 12:20 Assessment and Plan - Plan Status post L4-5 PLIF on 11/17/2017 -Managed by neurosurgery -Dilaudid LEATHERSMITH Hypertension/Hypothyroidism/Hyperlipidemia -all chronic -Restart all home medications -Hold BP meds if blood pressure <100 systolic. Caution for hypotension due to LEATHERSMITH. DVT prophylaxis: Per surgery Discussed with: Patient and nurse
[2017-11-19] MEDS: Levothyroxine 112 MCG Tablet PO SCH (05:14)
[2017-11-19] MEDS: Senna/Docusate Sodium 8.6/50 MG Tablet PO SCH ×3 (07:56→20:53)
[2017-11-19] MEDS: Multivitamin/Minerals Therapeutic Tablet PO SCH ×2 (07:56→08:32)
[2017-11-19] MEDS: Montelukast 10 MG Tablet PO SCH ×2 (07:56→08:32)
[2017-11-19] MEDS: hydroCHLOROthiazide 25 MG Tablet PO SCH ×2 (07:57→08:31)
[2017-11-19] MEDS: Vitamin B Complex/Vitamin C Tablet PO SCH ×2 (07:57→08:31)
[2017-11-19] MEDS: Loratadine 10 MG Tablet PO SCH ×2 (07:57→08:31)
[2017-11-19] MEDS: Sod Chloride 0.9% Inj 1,000 ML IV.CONT SCH (08:31)
[2017-11-19] MEDS ORDERED: Morphine Inj 4 MG/ML Vial IV.PUSH PRN (09:45)
--- NOTE | 2017-11-19 10:26 | P.PNNS ---
Subjective Interval history: No issues overnight. She walked down the [place]man and back with PT, and says that she felt steady doing so. Tolerating good p.o. intake. Has not needed her [employer]IE[employer] SECURITY AND SAFETY OFFICER very much at all. Physical Exam Vital signs: Vital Signs 11/18/17 12:00 11/18/17 12:17 11/18/17 16:00 Temperature 97.8 F 97.2 F L Pulse Rate 72 64 Respiratory Rate 20 18 20 Blood Pressure 107/57 L 90/53 L Pulse Oximetry 95 97 11/18/17 16:12 11/18/17 16:41 11/18/17 16:42 Temperature Pulse Rate Respiratory Rate 18 18 Blood Pressure 97/49 L Pulse Oximetry 11/18/17 20:00 11/19/17 00:00 11/19/17 04:00 Temperature 97.4 F L 98.1 F 97.5 F L Pulse Rate 67 62 61 Respiratory Rate 18 18 18 Blood Pressure 116/63 94/55 L 104/55 L Pulse Oximetry 97 95 95 11/19/17 06:47 11/19/17 07:51 Temperature 97.1 F L Pulse Rate 73 Respiratory Rate 17 18 Blood Pressure 119/62 Pulse Oximetry 100 Intake & Output 11/18/17 11/19/17 11/19/17 18:59 06:59 18:59 Intake Total 1441 / 1441 240 / 240 Output Total 260 / 260 50 / 50 Balance 1181 / 1181 190 / 190 Weight 93.7 kg Intake: IV 1200 / 1200 NS Inj 1,000 ML @ 100 mls/hr IV 1000 / 1000 .CONT .Q10H [facility] Rx#:[id number] Ancef Inj 2,000 MG In NS Inj 80 200 / 200 ML @ 100 mls/hr IV.SIG Q8H [facility] Rx#:[id number] Oral 241 / 241 240 / 240 Output: Urine Amount (Catheter) 200 / 200 Indwelling Urethral Catheter 200 / 200 Wound Drainage 60 / 60 50 / 50 # 1 Right Lower Medial Back 60 / 60 50 / 50 Other: # Voids 2 Date of Last Bowel Movement 11/17/17 11/17/17 11/18/17 - Routine Neurological Exam Alert and conversant. Normal strength throughout. Follows commands well 4. JOSHUA output was approximately 50 mL's. - Urinary Catheter Management Indwelling Urethral Catheter Cath placed during this visit: yes, but has since been removed by the nurse Reason for continuing: Decision to DC catheter Insertion date: 11/17/17 Insertion time: 15:16 Removal date: 11/18/17 Removal time: 12:20 Assessment and Plan - Plan 67-year-old female status post L4-5 PLIF on 11/17/17. Postoperative x-rays demonstrate good hardware position. Neuro: Good exam. Pain control much improved; we will DC her [employer]ITY [employer] SAFETY OFFICER today and give her IV morphine for breakthrough and continue oral medications for the most part. JOSHUA output decreased, we will remove it today. Pulm: 02 while on [employer]IE[employer] SECURITY AND SAFETY OFFICER. Pulmonary toilet as needed. CV: Stable GI: Has diet, encouraged p.o. intake : Can DC Saul catheter Dispo: Encouraged her to continue mobilizing and working with therapy. Likely will be here another day or 2. Continuing to wear her brace when she is up or out of bed. Improved pain control helping with this.
[2017-11-19 11:27] VITALS: O2SAT 98
[2017-11-19] MEDS: Sod Chloride 0.9% Inj 1,000 ML IV.SIG SCH (12:59)
--- NOTE | 2017-11-19 17:03 | P.PN ---
Subjective Interval history: Patient is seen sitting up in chair. Says that she is feeling better today. LABOR EXPEDITER pump has been stopped. No chest pain or shortness of breath. No nausea vomiting or diarrhea. No dizziness or syncope. No fever or chills. Physical Exam Vital signs: Vital Signs 11/18/17 20:00 11/19/17 00:00 11/19/17 04:00 Temperature 97.4 F L 98.1 F 97.5 F L Pulse Rate 67 62 61 Respiratory Rate 18 18 Blood Pressure 116/63 94/55 L 104/55 L Pulse Oximetry 97 95 95 11/19/17 06:47 11/19/17 07:51 11/19/17 11:20 Temperature 97.1 F L Pulse Rate 73 Respiratory Rate 17 18 Blood Pressure 119/62 Pulse Oximetry 100 11/19/17 11:25 11/19/17 11:29 11/19/17 11:50 Temperature 97.1 F L Pulse Rate 68 Respiratory Rate 17 18 Blood Pressure 104/53 L Pulse Oximetry 98 11/19/17 16:48 Temperature Pulse Rate Respiratory Rate 18 Blood Pressure Pulse Oximetry Intake & Output 11/18/17 11/19/17 11/19/17 18:59 06:59 18:59 Intake Total 1441 / 1441 240 / 240 600 / 600 Output Total 260 / 260 50 / 50 Balance 1181 / 1181 190 / 190 600 / 600 Weight 93.7 kg Intake: IV 1200 / 1200 600 / 600 NS Inj 1,000 ML @ 100 mls/hr IV 1000 / 1000 .CONT .Q10H [facility] Rx#:[id number] NS Inj 1,000 ML @ 30 mls/hr IV. 600 / 600 SIG .Q24H [facility] Rx#:[id number] Ancef Inj 2,000 MG In NS Inj 80 200 / 200 ML @ 100 mls/hr IV.SIG Q8H [facility] Rx#:[id number] Oral 241 / 241 240 / 240 Output: Urine Amount (Catheter) 200 / 200 Indwelling Urethral Catheter 200 / 200 Wound Drainage 60 / 60 50 / 50 # 1 Right Lower Medial Back 60 / 60 50 / 50 Other: # Voids 2 Date of Last Bowel Movement 11/17/17 11/17/17 11/18/17 Narrative: GENERAL: Well-nourished, well-developed adult female in no obvious distress. SKIN: Warm and dry. HEAD: Atraumatic. Normocephalic. CARDIOVASCULAR: Regular rate and rhythm. RESPIRATORY: No accessory muscle use. Clear to auscultation. Breath sounds equal bilaterally. GASTROINTESTINAL: Abdomen soft, non-tender, non-distended. Positive bowel sounds. MUSCULOSKELETAL: Extremities without clubbing, cyanosis, or edema. No obvious deformities. Wearing back brace. NEUROLOGICAL: Awake and alert. No obvious cranial nerve deficits. Motor grossly within normal limits. Normal speech. PSYCHIATRIC: Appropriate mood and affect; insight and judgment good. - Urinary Catheter Management Indwelling Urethral Catheter Cath placed during this visit: yes, but has since been removed by the nurse Reason for continuing: Decision to DC catheter Insertion date: 11/17/17 Insertion time: 15:16 Removal date: 11/18/17 Removal time: 12:20 Results - Labs CBC & Chem 7: 11/18/17 08:00 11/18/17 08:00 Assessment and Plan - Plan Patient is a 67-year-old -[place] female with a past medical history of hypertension, hyperlipidemia, hypothyroidism and chronic back pain. She was admitted on 11/17 for L4-5 PLIF. Status post L4-5 PLIF on 11/17/2017 -Managed by neurosurgery -Dilaudid LABOR EXPEDITER off; oral pain control per sx Hypertension/Hypothyroidism/Hyperlipidemia -all chronic -Restart all home medications -Hold BP meds if blood pressure <100 systolic. DVT prophylaxis: Per surgery Discussed with: Patient and nurse and Dr. Mustafa Discharge planning: Stable medically. Discharge per neurosurgery.
[2017-11-20] MEDS: Levothyroxine 112 MCG Tablet PO SCH (05:54)
[2017-11-20] MEDS: Vitamin B Complex/Vitamin C Tablet PO SCH ×2 (07:46→09:40)
[2017-11-20] MEDS: Senna/Docusate Sodium 8.6/50 MG Tablet PO SCH ×2 (07:46→09:41)
[2017-11-20] MEDS: Montelukast 10 MG Tablet PO SCH ×2 (07:46→09:41)
[2017-11-20] MEDS: Multivitamin/Minerals Therapeutic Tablet PO SCH ×2 (07:46→09:41)
[2017-11-20] MEDS: Loratadine 10 MG Tablet PO SCH ×2 (07:46→09:40)
[2017-11-20] MEDS: hydroCHLOROthiazide 25 MG Tablet PO SCH ×2 (07:47→09:41)
--- NOTE | 2017-11-20 10:49 | P.DS ---
Date of admission: 11/17/17 09:28 Primary care physician: Breana Dominguez MD Brief History from admission: Ms Patterson is a 67 year-old female who presented with intractable mechanical back pain and jignesh evidence of L4 lower extremity radiculopathy. she had history of a prior L2-3 fusion done and she has developed severe adjacent level degenerative disk disease, with a disk herniation at L3-L4. She has failed maximum nonsurgical management including multiple modalities of conservative treatment as well as pain management interventions by an interventional pain specialist. A surgical decompression and arthrodhesis were indicated as a last resort. DS: Medications - Discharge Medications Prescriptions: hydrocodone-acetaminophen 2 tab PO Q4H PRN 3 Days #18 tab PRN Reason: Pain Scale 6 To 10 DS: Summary Hospital Course: Ms. Pattersno underwent L3-4 left laminectomy, interbody arthrodhesis using PEEK cage and autologous bone graft, L3-L4 instrumental fixation using transpedicular screws and rods, L3-L4 posterolateral fusion using autologous bone graft and demineralized bone matrix. Microsurgical dissection for lumbar degenerative disk disease on 11/17/17. Her postoperative pain controlled on oral medications. She will be discharged home with home health care in stable conditions. - Time Spent with Patient Total time spent providing and/or coordinating discharge services: Less than 30 minutes - Quality: VTE Deep Vein Thrombosis/Pulmonary Embolism Present on Admission: No Exam Vital signs: Vital Signs 11/19/17 11:20 11/19/17 11:25 11/19/17 11:29 Temperature 97.1 F L Pulse Rate 68 Respiratory Rate 18 17 Blood Pressure 104/53 L Pulse Oximetry 98 11/19/17 11:50 11/19/17 16:48 11/19/17 17:18 Temperature Pulse Rate Respiratory Rate 18 18 18 Blood Pressure Pulse Oximetry 11/19/17 20:00 11/20/17 00:00 11/20/17 04:00 Temperature 98.2 F 98 F 98 F Pulse Rate 65 66 66 Respiratory Rate 17 17 17 Blood Pressure 108/55 L 110/57 L 109/55 L Pulse Oximetry 98 98 98 11/20/17 07:47 Temperature 97.2 F L Pulse Rate 76 Respiratory Rate 18 Blood Pressure 175/81 H Pulse Oximetry 98 Intake & Output 11/19/17 11/20/17 11/20/17 18:59 06:59 18:59 Intake Total 600 / 600 Balance 600 / 600 Weight 93.6 kg Intake: IV 600 / 600 NS Inj 1,000 ML @ 30 mls/hr IV. 600 / 600 SIG .Q24H [facility] Rx#:[id number] Other: Date of Last Bowel Movement 11/18/17 11/18/17 11/17/17 Results Procedures completed during hospitalization: L3-4 left laminectomy, interbody arthrodhesis using PEEK cage and autologous bone graft, L3-L4 instrumental fixation using transpedicular screws and rods, L3 -L4 posterolateral fusion using autologous bone graft and demineralized bone matrix. Microsurgical dissection Labs on day of discharge: Labs from last 24 hours 11/17/17 19:01 MTS Gel Crossmatch See Detail - Impressions ITS Impressions Lumbar Spine X-Ray 11/17/17 00:00 CONCLUSION: Placement of surgical hardware as described above. Discharge Plan - Discharge Disposition Patient Disposition: W/Home Health Service - Discharge Condition Condition: Good - Discharge Order Discharge Orders: Discharge Order (Routine); Ordered 11/20/17 Ordered By: Kirsten Vann - Physicians Team Primary Care Provider: Breana Dominguez Attending Provider: Juan Antonio Watts Other Providers: Ziggy Mustafa MD ; [facility],[place] - Rxs /Orders / Referrals /Forms Prescriptions: New hydrocodone-acetaminophen 10-325 mg Tablet 2 tab PO Q4H PRN (Reason: Pain Scale 6 To 10) 3 Days Qty: 18 RF: 0 Continue albuterol sulfate [Proventil HFA] 90 mcg/actuation Hfa Aerosol Inhaler 1 puff INHALATION Q4-6H PRN (Reason: Shortness Of Breath) atorvastatin 10 mg Tablet 10 mg PO DAILY cetirizine [Zyrtec] 10 mg Capsule 10 mg PO DAILY PRN (Reason: Allergy Symptoms) clonidine HCl 0.1 mg Tablet 0.2 mg PO BID hydrochlorothiazide 25 mg Tablet 25 mg PO DAILY levothyroxine [Synthroid] 112 mcg Tablet 112 mcg PO DAILY loratadine [Claritin] 10 mg Tablet 10 mg PO DAILY losartan 100 mg Tablet 100 mg PO DAILY mometasone-formoterol [Dulera] 100-5 mcg/actuation Hfa Aerosol Inhaler 2 puff INHALATION BID montelukast [Singulair] 10 mg Tablet 10 mg PO QPM [id number] K [Adults Multivitamin] 18 mg iron-400 mcg-25 mcg Tablet 1 tab PO DAILY nebivolol [Bystolic] 10 mg Tablet 10 mg PO HS pantoprazole 20 mg Tablet,Delayed Release (Dr/Ec) 20 mg PO DAILY potassium chloride 20 mEq Tablet Extended Release 20 meq PO BID vit B comp with C-calcium carb [B-Complex] 300 mg-150 mg calcium Tablet 1 tab PO DAILY Ambulatory Orders / Order Sets / DME: Bedside Commode (Routine) Location: Determined by Patient Ordered By: Eunice Hinojosa Walker With Front Wheels (1 each) (Routine) Location: Determined by Patient Ordered By: Eunice Hinojosa Referrals: [facility] [Outside] - See Instructions Breana Dominguez MD [Primary Care Provider] - See Instructions - Discharge Instructions Patient Printed Instructions: Hydrocodone/Acetaminophen (By mouth), Laxative, Stool Softeners (By mouth), Laminectomy (DC), How to Choose and Use a Walker ( GEN), Narcotic Pain Management (ED), How To Wash Your Hands (DC), Fall Prevention (ED), Lumbar Brace (DC) Additional Instructions: PRESCRIPTION PROVIDED AT TIME OF DISCHARGE. KEEP BANDAGE CLEAN AND DRY. REPORT ANY INCREASED REDNESS, SWELLING, OR DRAINAGE TO DR. WATTS. CONTINUE TO WEAR YOUR LUMBAR BRACE WHEN OUT OF BED. - Post Discharge Care Plan Care Plan Goals: Your Health Problems: Goals to Promote Your Health: * To prevent worsening of your condition * To maintain your health at the optimal level Directions to Meet Your Goals: * Take your medications as prescribed * Follow your dietary instruction * Follow activity as directed * Keep your appointments as scheduled * Take your immunizations and boosters as scheduled * If your symptoms worsen call your PCP * If no PCP go to Urgent Care or Emergency Room Smoking is dangerous to your health. Avoid second hand smoke. You may reach the 24-hour crisis hotline for domestic abuse at . Zachary discussed the [id number] details of the surgical procedure, its indications, alternatives, risks, and potential complications. Risks and potential complications include, but are not limited to, infection, blood loss, CSF leak, partial or complete loss of sight in one or both eyes, paresis, paralysis, permanent pain or difficulty swallowing, loss of bowel or bladder function, complications from anesthesia, blood clot, stroke, myocardial infarction, or even . The possibility of nonoperative treatment has been offered.I have reviewed the patient's MRI of the lumbar spine. The MRI findings correlate with the patient's clinical symptoms. The patient has failed to improve with conservative treatment including physical therapy, exercises, antiinflammatories and muscle relaxants, as well as, epidural steroid injections performed by an interventional pain specialist. The patient understands that a surgical procedure should be considered as a last resort. Unfortunately, the patient's symptoms are getting worse and continue to affect activities of daily living. I discussed with the patient the alternative of continuing nonsurgical treatment with further pain management and physical therapy, analgesics, and antiinflammatories, versus consideration to a surgical decompression with a right L4-5 and possible L5-S1 hemilaminectomy, mesofacetectomy, foraminotomy with microsurgical resection of the disk. I have discussed the details of the surgical decompression including the step-by -step procedure, its indications, alternatives, risks, and potential complications. Risks and potential complications include, but are not limited to , infection, blood loss, CSF leak, partial or complete loss of sight in one or both eyes, paresis, paralysis, permanent pain, hoarseness or difficulty swallowing, loss of bowel or bladder function, complications from anesthesia, blood clot, stroke, myocardial infarction, or even . I advised Mira Patterson surgical procedures have risks, and before reaching a decision in regards to surgery, the patient should consider the alternatives, including the possibility of no treatment. I have counseled Mira Patterson on the proper body mechanics, importance of avoiding heavy lifting, repetitive bending, twisting, or any which might result in stress over the spine. The understands. All questions have been answered, no guaranties were given. The patient has an increased BMI for which the patient has been counseled today. The patient will follow-up with their family physician for weight management.
--- NOTE | 2017-11-20 10:51 | P.DCO ---
- Physical Therapy Order: Improve ambulation - Home Health Nursing Order: Medical education, Signs/symptoms of disease process, Medication education-adverse effect, Wound care and dressing changes (please see discharge orders), Nursing assessment with vital signs - Certification I have seen patient Mira Patterson on 11/20/17. My clinical findings support the need for the requested home health care services because: Deconditioned with increased weakness, High risk of falls I certify that my clinical findings support that this patient is homebound because: Post-op weakness
--- NOTE | 2017-11-20 11:31 | P.PN ---
Subjective Interval history: Patient is seen sitting up eating breakfast. Her daughter is with her. Reports that she is well and her pain is adequately controlled. No chest pain or shortness of breath. No nausea vomiting area. No fever or chills. She is ready to go home. Physical Exam Vital signs: Vital Signs 11/19/17 11:50 11/19/17 16:48 11/19/17 17:18 Temperature Pulse Rate Respiratory Rate 18 18 18 Blood Pressure Pulse Oximetry 11/19/17 20:00 11/20/17 00:00 11/20/17 04:00 Temperature 98.2 F 98 F 98 F Pulse Rate 65 66 66 Respiratory Rate 17 17 17 Blood Pressure 108/55 L 110/57 L 109/55 L Pulse Oximetry 98 98 98 11/20/17 07:47 Temperature 97.2 F L Pulse Rate 76 Respiratory Rate 18 Blood Pressure 175/81 H Pulse Oximetry 98 Intake & Output 11/19/17 11/20/17 11/20/17 18:59 06:59 18:59 Intake Total 600 / 600 Balance 600 / 600 Weight 93.6 kg Intake: IV 600 / 600 NS Inj 1,000 ML @ 30 mls/hr IV. 600 / 600 SIG .Q24H [facility] Rx#:[id number] Other: Date of Last Bowel Movement 11/18/17 11/18/17 11/17/17 Narrative: GENERAL: Well-nourished, well-developed adult female in no obvious distress. SKIN: Warm and dry. HEAD: Atraumatic. Normocephalic. CARDIOVASCULAR: Regular rate and rhythm. RESPIRATORY: No accessory muscle use. Clear to auscultation. Breath sounds equal bilaterally. GASTROINTESTINAL: Abdomen soft, non-tender, non-distended. Positive bowel sounds. MUSCULOSKELETAL: Extremities without clubbing, cyanosis, or edema. No obvious deformities. Wearing back brace. NEUROLOGICAL: Awake and alert. No obvious cranial nerve deficits. Motor grossly within normal limits. Normal speech. PSYCHIATRIC: Appropriate mood and affect; insight and judgment good. - Urinary Catheter Management Indwelling Urethral Catheter Cath placed during this visit: yes, but has since been removed by the nurse Reason for continuing: Decision to DC catheter Insertion date: 11/17/17 Insertion time: 15:16 Removal date: 11/18/17 Removal time: 12:20 Results - Labs CBC & Chem 7: 11/18/17 08:00 11/18/17 08:00 Laboratory Results - last 24 hr 11/17/17 19:01 MTS Gel Crossmatch See Detail Assessment and Plan - Plan Patient is a 67-year-old -Chinese female with a past medical history of hypertension, hyperlipidemia, hypothyroidism and chronic back pain. She was admitted on 11/17 for L4-5 PLIF. 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 DVT prophylaxis: Per surgery Discussed with: Patient and nurse and Dr. Mustafa Discharge planning: Stable medically. Discharge per neurosurgery.
[2017-11-20 12:17] VITALS: BP 119/62; PULSE 68; RESP 17; TEMP 97.4
== END 2017-11-20 14:43 | disposition home health service (06) ==
LOC: HSDI 11-17 09:28 → N06 11-17 22:29
PROVIDERS: ADMIT Neurological Surgery; ATTEND Neurological Surgery